=== PATIENT | female | born 1990 | race Caucasian/White ===

== ENCOUNTER 2016-11-30 19:05 | Inpatient (IN) | payer OTHER ==
[~2016-11-30] VITALS: Ht 167.6 cm; Wt 70.8 kg
[2016-11-30] MEDS ORDERED: Oxytocin 30 Units/500 mL LR 30 UNITS in IV Premix 1 EACH IV PRN (22:40)
[2016-11-30] MEDS ORDERED: Methylergonovine 0.2 mg/mL Inj IM PRN (22:40)
[2016-11-30] MEDS ORDERED: Hemorrhage Kit, Post Partum XX ONE (22:40)
[2016-11-30] MEDS ORDERED: Carboprost 250 mCg/mL Inj IM PRN (22:40)
[2016-11-30] MEDS ORDERED: Ondansetron 2 mg/mL 2 mL Inj IVPUSH PRN (22:40)
[2016-11-30] MEDS ORDERED: Sodium Chloride LOK Flush 10 mL Syringe IVFLUSH PRN (22:40)
[2016-11-30] MEDS ORDERED: Oxytocin 10 Unit/mL Inj IM PRN (22:40)
[2016-11-30 23:02] LABS: Mean Corpuscular Hemoglobin 30.8 pg (27.0-35.0); Mean Corpuscular Volume 89.6 fL (81-100)
[2016-11-30] MEDS: Lactated Ringer's 1,000 ML IV PRN (23:16)
[2016-11-30] MEDS ORDERED: PREN-56 PO (23:17)
[2016-12-01] MEDS ORDERED: fentaNYL 2 mCg/mL-Bupivicaine 0.125% 100 mL Premix EPIDURAL ONE (00:44)
--- NOTE | 2016-12-01 00:53 | PCM.HPANE ---
Patient Data Surgeon Admitting Provider:Wiliam Muhammad MD Attending Provider:Wiliam Muhammad MD Primary Care Physician:Wiliam Muhammad MD Other Provider:Vernon Garcia Anesthesia Reason for Visit Active Labor ACTIVE LABOR Ht/WT & BMI Body Mass Index Allergies Uncoded Allergies: PURTUSSIS VACCINE (Allergy, Unknown, 11/30/16) Medications Reported Medications [id number]/Iron Fumarate/FA/Dss ( 19 Tablet)1 Each Tablet1 Each PO DAILY 11/30/16 History Smoking Status: Never Smoker Stop/Bang Risk Assessment Category Category 1A: Patient has history of documented sleep apnea, and HAS NOT received any narcotic, sedative or anesthesia administration during this stay. Category 1B: Patient has history of documented sleep apnea, and HAS received any narcotic , sedative or anesthesia administration during this stay Category 2: Patient has SUSPECTED Obstructive Sleep Apnea, and HAS received any narcotic , sedative or anesthesia administration during this stay. Category 3: Patient has SUSPECTED Obstructive Sleep Apnea and HAS NOT received narcotic, sedative or anesthesia administration during this stay. Category 4: Outpatient in Procedural Areas with known sleep apnea or who screen positive for High Risk via the STOP/BANG questionnaire. Exam Exam General Appearance: Alert, Oriented X3, Cooperative, No Acute Distress HEENT/AIRWAY: MP 2 Lungs: Clear to Auscultation, Normal Air Movement Heart: Exam Unremarkable, Regular Rate/Rhythm, No Murmurs/Rubs/Gallops Meds/Labs/Diagnostics Labs Test 11/30/16 22:45 White Blood Count 19.6th/mm3 (3.8-10.1) Red Blood Count 4.32mil/mm3 (3.90-5.20) Hemoglobin 13.3g/dL (12.0-15.6) Hematocrit 38.7% (35.0-46.0) Mean Corpuscular Volume 89.6fL (81-100) Mean Corpuscular Hemoglobin 30.8pg (27.0-35.0) Mean Corpuscular Hemoglobin Concent 34.4% (32.0-37.0) Red Cell Distribution Width 12.7% (12.3-15.4) Platelet Count 225bil/L (150-400) Plan Impression Patient chart reviewed, patient interviewed and anesthestic plan with risks, benefits, and alternatives discussed, and informed consent obtained. ASA Physical Status: ASA2 Mod Systemic Disease Anesthetic Plan: Epidural Bene/Risks/Altern/Consents: Yes HP Complete Prior to Induction: Yes Tangela Stevens MD Dec 01, 2016 00:53
[2016-12-01] MEDS ORDERED: Lactated Ringer's 1,000 ML IV SCH ×2 (00:56→07:12)
[2016-12-01] MEDS ORDERED: Lactated Ringer's 500 ML IV ONE (00:56)
[2016-12-01] MEDS ORDERED: Atropine 1 mg/10 mL (Code) Syringe IVPUSH PRN (01:00)
[2016-12-01] MEDS ORDERED: Ondansetron 2 mg/mL 2 mL Inj IVPUSH PRN (01:00)
[2016-12-01] MEDS ORDERED: EPHEDrine Sulfate 50 mg/mL Inj IVPUSH PRN (01:00)
[2016-12-01] MEDS ORDERED: fentaNYL 2 mCg/mL-Bupiv 0.125% 100 ML EPIDURAL SCH (01:00)
[2016-12-01] MEDS: Lactated Ringer's 1,000 ML IV PRN ×2 (01:44→04:30)
[2016-12-01] MEDS ORDERED: LANOlin HPA 7 Gm Ointment TOPICAL PRN (07:15)
[2016-12-01] MEDS ORDERED: Witch Hazel-Glycerin Pads TOPICAL PRN (07:15)
[2016-12-01] MEDS ORDERED: Hemorrhage Kit, Post Partum XX ONE (07:15)
[2016-12-01] MEDS ORDERED: Methylergonovine 0.2 mg/mL Inj IM PRN (07:15)
[2016-12-01] MEDS ORDERED: HYDROcodone-APAP 5-325 mg Tablet PO PRN (07:15)
[2016-12-01] MEDS ORDERED: Oxytocin 10 Unit/mL Inj IM PRN (07:15)
[2016-12-01] MEDS ORDERED: TdaP Vaccine 0.5 mL Inj IM ONE (07:15)
[2016-12-01] MEDS ORDERED: Oxytocin 30 Units/500 mL LR 30 UNITS in IV Premix 1 EACH IV PRN (07:15)
[2016-12-01] MEDS ORDERED: Influenza (Adult) Vaccine 0.5 mL Syringe IM ONE (07:15)
[2016-12-01] MEDS ORDERED: Measles-Mumps-Rubella Vaccine 0.5 mL Inj SUBQ ONE (07:15)
[2016-12-01] MEDS ORDERED: Carboprost 250 mCg/mL Inj IM PRN (07:15)
[2016-12-01] MEDS ORDERED: Benzocaine (Dermoplast) 20% 60 Gm Spray TOPICAL PRN (07:15)
--- NOTE | 2016-12-01 10:21 | PCM.ANEP2 ---
Post Anesthesia Evaluation ASA/CMS Post Anesthesia VS in Patient's Normal Range?: Yes Resp Stable; Airway Patent?: Yes CV Function & Hydration Stable: Yes Mental Status Recovered?: Yes Pain control Satisfactory?: Yes N/V Control Satisfactory?: Yes Vicente Maxwell MD Dec 01, 2016 10:21
--- NOTE | 2016-12-02 01:00 | OP ---
[address] [address] OPERATIVE REPORT PATIENT: ZEYAD THOMPSON : 1990 MR#: [id number] ADMIT: 11/30/2016 JOB ID: [id number] DATE OF SURGERY: 12/01/2016 SURGEON: PREOPERATIVE DIAGNOSIS(ES): POSTOPERATIVE DIAGNOSIS(ES): TIME OF VISIT: 0800 hours [facility] NOTE: The patient was admitted in labor at term. She gradually worked her way through the latent phase of labor, and then the active phase of labor was reached and progressed relatively rapidly. Epidural was provided for pain management. heart tracing was acceptable throughout. Spontaneous rupture of membranes occurred not long before second stage of labor, and ultimately, there was thought felt to be some thin meconium, although not noted at delivery. Note also, fever to 38+ degree range during the hour prior to delivery, not specifically felt to be related to significant infection such as chorioamnionitis. There was some rise in heart rate, although no true tachycardia, suspect simply related to maternal temperature elevation of benign etiology. Once completely dilated, patient learned to push extremely well, steadily bringing down the head until ultimately . Head then delivered, followed by delivery of the shoulders, body, and extremities. The baby was active and crying and vigorous and then handed to mother for bonding with permission of jointer machine operator, who was present at delivery due to report of meconium. After 1+ minute of delay, umbilical cord was clamped and cut; and cord blood was then obtained for routine studies. Placenta with membranes were then spontaneously expelled, placenta first, membranes sometime later. Intrauterine exam following delivery of the membranes failed to demonstrate any additional tissue or membranes. The uterus contracted well with massage plus intravenous Pitocin infusion. Note blood loss in the 300 cc range. Betadine solution was used to cleanse the vulvovaginal region. There was short and shallow right periurethral laceration extending into right hymenal ring separation/laceration that was shallow. These were easily repaired with interrupted vertical mattress stitches as well as short running stitch. Hemostasis was noted to be complete. There was no hematoma formation. There was minimal uterine bleeding at this point. Instrument, needle, and sponge counts were all found to be correct. It certainly is anticipated that mother and baby will do very well during the timeframe. Temperature will be closely followed for each. Suspect that it will drift down to normal saline, doubt chorioamnionitis.
[2016-12-02 06:59] LABS: Mean Corpuscular Hemoglobin 30.2 pg (27.0-35.0)
[2016-12-02] MEDS ORDERED: Lactated Ringer's 1,000 ML IV ONE ×2 (08:27→08:30)
[2016-12-02] MEDS ORDERED: Butalbital-Acet-Caffeine Tablet PO PRN (08:30)
--- NOTE | 2016-12-02 08:44 | PCM.ANEP2 ---
Post Anesthesia Evaluation ASA/CMS Post Anesthesia VS in Patient's Normal Range?: Yes Resp Stable; Airway Patent?: Yes CV Function & Hydration Stable: Yes Mental Status Recovered?: Yes Pain control Satisfactory?: Yes (Yes, after epidural blood patch resolution of suspected dural puncture headache) N/V Control Satisfactory?: Yes Additional Comments Consulted for headache. Pt seen and evaluated at bedside. Laying left lateral decubitus on entry, repositioned supine after my entrance. Pt endorses headache of a dull ache in nature that radiates from posterior neck over top of head to frontal area bilateral. States this headache started almost immediately after delivery. Negative for nausea/vomiting, tinnitus, diplopia, vertigo, photophobia or pinpoint backache. Endorses back spasms. States headache occurs immediately upon rising with immediate cessation upon laying supine. Diagnosis and options discussed with patient and her spouse. Conservative measures for treatment of suspected dural puncture headache addressed. Blood patch mentioned , however patient and spouse choose not to discuss this option in depth until later. Questions regarding chances of spontaneous resolution within a week also addressed. Per patient and spouse request at this time we will treat for possible dural puncture headache with: 1L bolus of LR and maintenance at 100ml/ hr; Fiorcet 1 tab PO q4-6hr PRN and Gabapentin 300mg PO TID after discussion and assistance from pharmacist. Pt will attempt to eat something at this time. She has recently received Ibuprofen. Pt acknowledges that if she later decides she wants a blood patch, we will wait for appropriate NPO status. Pt and spouse are in agreement with the plan and assessment, and this is their current desire. 1329 Called by RN and informed that patient had changed her mind and now desires epidural blood patch. She had just eaten lunch so options were to proceed with procedure without any sedation or wait 6 hours NPO to receive sedation for procedure. Pt elected to proceed without sedation. Pt still does not endorse any additional symptoms aside from headache; No nausea/vomiting, tinnitus, diplopia, vertigo, photophobia or pinpoint backache. See procedure note regarding successful epidural blood patch with resolution of suspected dural puncture headache. Michele Coy MD Dec 02, 2016 08:44
--- NOTE | 2016-12-02 15:31 | PROCED ---
[address] [address] PROCEDURE NOTE PATIENT: ZEYAD THOMPSON : 1990 MR#: [id number] ADMIT: 11/30/2016 JOB ID: [id number] DATE OF SERVICE: 12/02/2016 PROCEDURE: Epidural blood patch. INDICATION: Dural puncture headache. SURGEON: Michele Coy MD and [facility]. PREOPERATIVE DIAGNOSIS(ES): dural puncture headache POSTOPERATIVE DIAGNOSIS(ES): dural puncture headache Consent was obtained from the patient prior to the procedure. Indications, risks and benefits were explained at length. PROCEDURE SUMMARY: A time out was performed. Hands were washed immediately prior to the procedure. Surgical cap, mask, protective eye wear and sterile gloves were worn throughout the procedure. The patient was placed in a sitting position with legs dangling. Nurse was located in front of patient after having started peripheral IV in the left antecubital space. ASA monitors were in place. The patient's back was prepped and draped in a sterile fashion using ChloraPrep. 1% lidocaine was injected in the subcutaneous tissue superior to the L2-3 interspace. Prior needle insertion sites were noted at T12-L1 and L1-L2 from prior epidural placement by Dr. Stevens. A 17-gauge Tuohy needle was inserted at L2-3 and advanced via loss of resistance to air. Loss of resistance to air was obtained at 4 cm. No CSF, heme, pain or paresthesias. Sterile syringe containing 35 mL of the patient's own blood was handed by the nurse with sterile gloves to Dr. Coy. Syringe was connected to the epidural needle and slowly injected into the patient's epidural space while monitoring patient's condition. 23 mL of sterile blood were slowly and safely injected under patient direction until patient tolerance indicated cessation of procedure due to uncomfortable pressure felt in the lower back and back of the neck. No adverse central nervous system or cardiovascular effects were observed. The patient tolerated the procedure well. The needle was removed and adequate hemostasis was noted at the insertion site. A Band-Aid was applied to the site. The patient endorsed immediate resolution of her dural puncture headache. No lower extremity neurologic complaints were endorsed. The patient was allowed to sit back in her bed in normal position. The patient continued to endorse complete resolution of her dural puncture headache symptoms. The patient was highly satisfied. The patient exhibited stable vitals, normal baseline mentation and improved comfort. No complications MTDD
--- NOTE | 2016-12-02 19:35 | PCM.DIOB ---
Obstetrical Disch Instruction Dates of Hospitalization Date of Hospital Admission Nov 30, 2016 at 22:45 Providers Admitting Physician: Wiliam Muhammad MD Primary Care Physician: Wiliam Muhammad MD Attending Physician: Wiliam Muhammad MD Discharge Diagnosis Problems: (1) Status: Acute ICD Code: Z33.1 Diet Discharge Diet: No restrictions Activity Discharge Activity-General: Pelvic Rest for 6 weeks Dressing and Incisional Care Hygiene: May shower, Perineal care, Sitz bath, Dermoplast spray, Witch Kristel pads, Ice Follow Up Plan Follow-up appointment: Weeks (Follow up at 6 weeks for checkup with Dr. Muhammad.) Call your provider for: Fever or Chills, Shortness of breath, Heavy vaginal bleeding, Red painful breasts Wiliam Muhammad MD Dec 02, 2016 19:35
[2016-12-02] MEDS ORDERED: IBUP-1827 PO (19:36)
[2016-12-02 19:45] VITALS: BP 122/72; PULSE 86; RESP 16
--- NOTE | 2016-12-03 15:18 | DIS ---
[address] [address] DISCHARGE SUMMARY PATIENT: ZEYAD THOMPSON : 1990 MR#: [id number] ADMIT: 11/30/2016 JOB ID: [id number] DIS: 12/02/2016 DISCHARGE DIAGNOSIS: 1. Term , Delivered. 2. Spinal headache, resolved with blood patch. PROCEDURES PERFORMED DURING HOSPITALIZATION: 1. Vaginal delivery. 2. Repair of minor labial lacerations. 3. Epidural anesthesia. 4. Epidural blood patch. HOSPITAL COURSE: The patient was admitted to [facility] in labor. She ultimately went on to deliver vaginally. During the timeframe, vitals remained stable, she was afebrile, she had reasonable bleeding and pain management, she had no leg pain or shortness of breath, and she handled baby well. hemoglobin was appropriate. Note that white blood cell count was elevated on admission although no fever on admission (only very briefly at the endstage of labor), there was no prolonged rupture of membranes, and there was negative GBS status...It was thought that WBC elevation was very likely related to WBC demargination due to stress of labor as opposed to infection. The patient did develop a spinal headache that was progressive in spite of conservative treatment maneuvers. Epidural blood patch was thus provided per anesthesia, and headache resolved. The patient was ready for discharge to boarder status on December 02, 2016, the first day. DISCHARGE PROGRAM: The patient will call p.r.n., otherwise will followup at six weeks for checkup with Dr. Muhammad at [facility]. She will observe pelvic rest for six weeks. DISCHARGE MEDICATIONS: Include ibuprofen (prescription written) and vitamins daily (the patient has supply at home). MTDD
--- NOTE | 2016-12-05 15:14 | PATH ---
SURGICAL PATHOLOGY Attending Physician:Wiliam Muhammad M.D CASE STATUS: Signed Out PATIENT NAME: ZEYAD THOMPSON PID: [id number] : 1990 DATE COLLECTED:12/01/2016 16:23 SPECIMEN: Placenta CLINICAL HISTORY: MATERNAL FEVER, MECONIUM 1). PLACENTA FINAL DIAGNOSIS: 1.PLACENTA (388 GRAMS): MATURE PLACENTA WITH NO EVIDENCE OF CHORIOAMNIONITIS OR FUNISITIS. ICD10 CODE O75.2 GROSS DESCRIPTION: The specimen is received in formalin, labeled with the patient's name and consists of an intact placenta and includes placental disc (388 g, 15.0 x 12.0 x 3.8 cm), umbilical cord (length-24.8 cm, diameter-1.1 x 0.8 cm) and membranes. The membranes are torn; therefore, the rupture site cannot be determined. The membranes are semi-translucent. The umbilical cord is attached 1.7 cm from the edge of the placenta and contains 3 vessels. The surface is smooth and shiny with opaque areas (4.5 x 2.5 cm and 5.8 x 3.7 cm) along the periphery. No evidence of meconium is identified. The maternal surface is dark maroon with normal cotyledon formation. The placental disc is spongy with no hematomas, infarcts, nodules, masses, or lesions. Section code: (A) edge of placenta with membranes, umbilical cord; (B, C-D, E-F) placenta, 3 full thickness sections. 12/03/16 JM MICRO DESCRIPTION: See diagnosis. ICD-9 CODES: CPT CODES: 1: 88197 Electronically Signed Out Manohar Pike MD [facility] [address], [place] [address] Technical component performed at [facility], [facility] [address], [place], [address]
--- NOTE | 2017-01-18 17:23 | HP ---
[address] [address] HISTORY AND PHYSICAL PATIENT: ZEYAD THOMPSON : 1990 MR#: [id number] ADMIT: 11/30/2016 JOB ID: [id number] DATE: 11/30/2016 [facility] NOTE: This patient is a 26-year-old, G1, P0, AB 0, woman followed prenatally at [facility], see record for details. There was a threatened early on in , yet bleeding then ceased. She declined quad screen although level two sonogram was negative. She did flu shot although declined Tdap due to history of febrile reaction with Tdap in the past. The patient went into labor at term, i.e. at 39 and 5/7ths weeks of gestation and was admitted. PHYSICAL EXAMINATION: On admission, height 66 inches, last weight and blood pressure in the office 154 pounds, 116/76. Neck: No thyromegaly. Lungs: Clear to auscultation and percussion. Heart: Regular in rate and rhythm. Abdomen: Positive heartbeat. Fundal height 36 cm at last check, vertex presentation. DIAGNOSTIC DATA: Admission hemoglobin greater than 13, normal platelets. IMPRESSION: 1. 39 and 5/7ths weeks . 2. Labor. 3. Negative strep test. 4. Rubella immune. 5. Received flu shot in , declined Tdap due to past febrile reaction with it. 6. Level 2 sonogram negative, quad screen declined. 7. Threatened early on, bleeding ultimately ceased. 8. History of abnormal Pap test, colposcopy reportedly "normal", paps apparently normalized without treatment. Note, normal Pap from May 19, 2016. 9. Anxiety, no medications. 10. Prior smoker, stopped in 2012. 11. Family history of hypertension, bypass surgery, dementia (diagnosed at age 56, mother), Alzheimer's (grandfather), melanoma (brother - ), grandmother ([place]'s disease, and congenital heart disease ('s sister's son, i.e. 's nephew has ventricular septal defect, and another individual in the family has a fetus with moderate aortic valve stenosis with the possibility of intervention.) 12. cardiac workup per echocardiogram suggested no aortic valve stenosis or incompetence, normal-appearing aortic arch, normal segmental anatomy, redone Eustachian valve and foraminal flap with no significant obstruction to right to left shunting, small apical ventricular septal defect was suspected in some images although it could not be reliably reproduced in short axis images. This workup was obtained in the setting of patient's 's family history of congenital heart disease. PLAN: This patient was admitted to [facility] on November 30, 2016 in labor at term, anticipating vaginal delivery. Dehydrogenation Operator Head will be notified of cardiac workup that has been essentially negative, in the setting of the patient's 's family history of congenital heart disease. Dehydrogenation Operator Head will sort out whether additional cardiac workup is indicated down the line.
== END 2016-12-02 20:25 | disposition home or self-care (01) | DRG 775 ==
LOC: FBCO 19:05 → FBC 22:45
PROVIDERS: ADMIT Obstetrics & Gynecology; ATTEND Obstetrics & Gynecology
PROC: 10E0XZZ Delivery of Products of Conception, External Approach (ICD-10-PCS; principal; 2016-12-01)
PROC: 0TQD7ZZ Repair Urethra, Via Natural or Artificial Opening (ICD-10-PCS; 2016-12-01)
PROC: 3E0R3GC Introduction of Other Therapeutic Substance into Spinal Canal, Percutaneous Approach (ICD-10-PCS; 2016-12-02)
DX: O71.5 Other obstetric injury to pelvic organs (principal); Z37.0 Single live birth; G97.1 Other reaction to spinal and lumbar puncture; Y92.230 Patient room in hospital as the place of occurrence of the external cause; Z3A.39 39 weeks gestation of pregnancy